=== PATIENT | male | born 2000 | race African-American/Black ===

== ENCOUNTER 2023-11-09 19:24 | Emergency (ER) | payer OTHER | END 2023-11-09 21:15 | disposition home or self-care (01) | LOC: ERS 19:24 | DX: S09.90XA Unspecified injury of head, initial encounter (principal); S50.12XA Contusion of left forearm, initial encounter; V89.2XXA Person injured in unspecified motor-vehicle accident, traffic, initial encounter | CPT/HCPCS: 70450 ==